=== PATIENT | male | born 1995 | race Caucasian/White ===

== ENCOUNTER → 2017-08-14 | Outpatient (CLI) | payer OTHER ==
[~2017-08-14] MED LIST: FISH OIL OMEGA1 EAC1 PO; HYDR-757 PO; OSLT75C PO; SERT100T PO; SULF1TAB38 PO
--- NOTE | 2017-08-14 10:48 | Diagnostic Imaging Report ---
Indication: Left renal mass noted on outside imaging. Comparison: No prior studies are available for comparison. Findings: Left kidney measures 11.4 x 6.1 x 5.3 cm. Cortical thickness and echogenicity is normal. No calculi are seen. No hydronephrosis. No renal masses identified. Impression: Unremarkable left renal ultrasound. Note is made of patient's reportedly abnormal outside study and its report is not available for direct comparison. Dictated by: Dictated on workstation # [id number]
== END ==
LOC: RAD 10:09
PROVIDERS: ATTEND Internal Medicine
DX: N28.89 Other specified disorders of kidney and ureter (principal)
CPT/HCPCS: 76775

== ENCOUNTER 2023-04-07 08:03 | Emergency (ER) | payer OTHER ==
[~2023-04-07] VITALS: Ht 177 cm; Wt 108.0 kg
[~2023-04-07 08:03] MED LIST changes: +HYDR-4226 PO; -HYDR-757 PO
[2023-04-07 08:10] VITALS: BP 166/97
[2023-04-07] MEDS ORDERED: KETOROLAC INJ 30 MG/ML VIAL IVP STA (08:31)
[2023-04-07] MEDS ORDERED: NS IV 1000 ML 1,000 ML IV STA (08:31)
[2023-04-07 08:46] LABS: CLARITY,URINE SL CLOUDY; COLOR,URINE YELLOW
[2023-04-07 08:47] LABS: BACTERIA,URINE NEGATIVE /HPF; BILIRUBIN,URINE NEGATIVE (NEGATIVE); GLUCOSE, URINE (UA) NEGATIVE (NEGATIVE); KETONES,URINE NEGATIVE (NEGATIVE); LEUKOCYTE ESTERASE ,URINE NEGATIVE (NEGATIVE); NITRITE,URINE NEGATIVE (NEGATIVE); PROTEIN,URINE NEGATIVE (NEGATIVE)
[2023-04-07 08:51] LABS: BASOPHILS % (AUTO) 0 % (0-10); EOSINOPHILS % (AUTO) 0 % (0-10); HEMATOCRIT 48 % (40-54); HEMOGLOBIN 16.5 g/dL (13.3-17.7); LYMPHOCYTES # (AUTO) 1.5 10^3/uL (1.0-4.0); LYMPHOCYTES % (AUTO) 20 % (12-44); MEAN CORPUSCULAR HEMOGLOBIN 32 pg (25-34); MEAN CORPUSCULAR HGB CONC 34 g/dL (32-36); MEAN CORPUSCULAR VOLUME 94 fL (80-99); MEAN PLATELET VOLUME 10.8 fL (9.0-12.2); MONOCYTES # (AUTO) 0.7 10^3/uL (0.0-1.0); MONOCYTES % (AUTO) 9 % (0-12); NEUTROPHILS # (AUTO) 5.2 10^3/uL (1.8-7.8); NEUTROPHILS % (AUTO) 70 % (42-75); PLATELET COUNT 261 10^3/uL (130-400); WHITE BLOOD COUNT 7.4 10^3/uL (4.3-11.0)
[2023-04-07 08:59] LABS: ALBUMIN 4.7 GM/DL (3.2-4.5); CHLORIDE 106 MMOL/L (98-107); SODIUM 140 MMOL/L (135-145)
[2023-04-07 09:00] LABS: CALCIUM 9.3 MG/DL (8.5-10.1)
[2023-04-07 09:02] LABS: GLUCOSE 103 MG/DL (70-105); TOTAL PROTEIN 7.6 GM/DL (6.4-8.2)
[2023-04-07 09:03] LABS: BILIRUBIN,TOTAL 0.6 MG/DL (0.1-1.0); CARBON DIOXIDE 27 MMOL/L (21-32)
[2023-04-07 09:05] LABS: ALKALINE PHOSPHATASE 59 U/L (40-136); CREATININE SERUM 1.21 MG/DL (0.60-1.30); GFR ESTIMATED 84
[2023-04-07 09:06] LABS: BUN/CREATININE RATIO 15
[2023-04-07 09:08] LABS: ALANINE AMINOTRANSFERASE 50 U/L (0-55)
--- NOTE | 2023-04-07 09:11 | ED General ---
General Chief Complaint: - Reproductive Stated Complaint: ABD PAIN | SCROTUM PAIN Nursing Triage Note: ARRIVED VIA AMB TO ROOM 09 WITH COMPLAINTS OF LEFT SIDED ABD PAIN THAT RADIATES INTO GROIN AND BUTTOCKS. DESCRIBES BURNING. OFF AND ON FOR 2 WEEKS THAT IS WORSE TODAY. Source of Information: Patient Exam Limitations: No Limitations History of Present Illness Date Seen by Provider: Apr 07, 2023 Time Seen by Provider: 08:27 Initial Comments Here with complaint of 2 weeks of left-sided abdominal/flank pain that radiates to the groin and buttocks. Describes burning with urination and overall it is worse today. Denies blood in his urine or stool. Denies diarrhea. He has never had pain like this before. He has not taken anything for the pain. He denies fever or chills or anything above the diaphragm with respect to concerns including chest pain, breathing problems, sore throat, runny nose or cough. Denies recent injury. Timing/Duration: Getting Worse, Intermittent, Other (2 weeks) Severity: Moderate Modifying Factors: worse with Movement Associated Systoms: No Chest Pain, No Cough, No Fever/Chills, No Nausea/Vomiting, No Shortness of Air, No Weakness Allergies and Home Medications Allergies Coded Allergies: cefixime (Unverified Adverse Reaction, Mild, HIVES, 09/25/10) doxycycline (Verified Adverse Reaction, Unknown, CHANGES MOOD, 04/07/23) Patient Home Medication List Home Medication List Reviewed: Yes Hydrocodone/Acetaminophen (Hydrocodone/Acetaminophen 5 MG/325 MG TAB) 1 Each Tablet, 1 EACH PO Q4H PRN for PAIN Prescribed by: ASTRID SANDOVAL on 12/15/151944 Sertraline HCl (Zoloft) 100 Mg Tablet, 100 MG PO HS, (Reported) Entered as Reported by: FLORENTINO BRIONES on 10/13/15 1517 Review of Systems Review of Systems Constitutional: see HPI; No chills, No fever EENTM: no symptoms reported Respiratory: no symptoms reported Cardiovascular: no symptoms reported Gastrointestinal: see HPI; No diarrhea, No nausea, No vomiting Genitourinary: see HPI; No discharge; dysuria, pain Musculoskeletal: back pain Skin: no symptoms reported Psychiatric/Neurological: No Symptoms Reported Past [id number] Hx Patient Social History Tobacco Use?: No Substance use?: No Alcohol Use?: No Immunizations Up To Date Tetanus Booster (TDap): Less than 5yrs Seasonal Allergies Seasonal Allergies: No Past Medical History Surgeries: Yes Respiratory: No Cardiac: No Neurological: No Reproductive Disorders: No Sexually Transmitted Disease: No HIV/AIDS: No Genitourinary: No Gastrointestinal: No Musculoskeletal: No Endocrine: No Adverse Reaction/Blood Tranf: No Family Medical History Reviewed Nursing Family Hx Physical Exam Vital Signs Vital Signs - First Documented 04/07/23 08:10 Temp 36.6 Pulse 90 Resp 16 B/P (MAP) 166/97 (120) Pulse Ox 96 O2 Delivery Room Air Capillary Refill : Less Than 3 Seconds Height, Weight, BMI Height: 5'10" Weight: 213lbs. oz. 96.739915bi; 34.00 BMI Method:Stated General Appearance: No Apparent Distress, WD/WN HEENT: PERRL/EOMI, Pharynx Normal Neck: Non Tender, Supple Respiratory: Lungs Clear, Normal Breath Sounds Cardiovascular: Regular Rate, Rhythm, No Murmur Gastrointestinal: Soft; No Guarding, No Rebound; Tenderness (Left lower quadrant, left flank) Back: CVA Tenderness (L); No CVA Tenderness (R), No Muscle Spasm, No Vertebral Tenderness Extremity: Normal Range of Motion, Non Tender Neurologic/Psychiatric: Alert, Oriented x3 Skin: Normal Color, Warm/Dry Progress/Results/Core Measures Suspected Sepsis SIRS Temperature: Pulse: 90 Respiratory Rate: 16 Laboratory Tests 04/07/23 08:45: White Blood Count 7.4 Blood Pressure 166 /97 Mean: 120 Laboratory Tests 04/07/23 08:45: Creatinine 1.21, Platelet Count 261, Total Bilirubin 0.6 Results/Orders Lab Results Laboratory Tests Test 04/07/23 08:12 04/07/23 08:45 Range/Units Urine Color YELLOW Urine Clarity SL CLOUDY Urine pH 6.0 5-9 Urine Specific [place] 1.025 H 1.016-1.022 Urine Protein NEGATIVE NEGATIVE Urine Glucose (UA) NEGATIVE NEGATIVE Urine Ketones NEGATIVE NEGATIVE Urine Nitrite NEGATIVE NEGATIVE Urine Bilirubin NEGATIVE NEGATIVE Urine Urobilinogen 0.2 < = 1.0 MG/DL Urine Leukocyte Esterase NEGATIVE NEGATIVE Urine RBC (Auto) NEGATIVE NEGATIVE Urine RBC NONE /HPF Urine WBC NONE /HPF Urine Crystals NONE /LPF Urine Bacteria NEGATIVE /HPF Urine Casts NONE /LPF Urine Mucus SMALL H /LPF Urine Culture Indicated NO White Blood Count 7.4 4.3-11.0 10^3/uL Red Blood Count 5.11 4.30-5.52 10^6/uL Hemoglobin 16.5 13.3-17.7 g/dL Hematocrit 48 40-54 % Mean Corpuscular Volume 94 80-99 fL Mean Corpuscular Hemoglobin 32 25-34 pg Mean Corpuscular Hemoglobin Concent 34 32-36 g/dL Red Cell Distribution Width 12.1 10.0-14.5 % Platelet Count 261 130-400 10^3/uL Mean Platelet Volume 10.8 9.0-12.2 fL Immature Granulocyte % (Auto) 0 % Neutrophils (%) (Auto) 70 42-75 % Lymphocytes (%) (Auto) 20 12-44 % Monocytes (%) (Auto) 9 0-12 % Eosinophils (%) (Auto) 0 0-10 % Basophils (%) (Auto) 0 0-10 % Neutrophils # (Auto) 5.2 1.8-7.8 10^3/uL Lymphocytes # (Auto) 1.5 1.0-4.0 10^3/uL Monocytes # (Auto) 0.7 0.0-1.0 10^3/uL Eosinophils # (Auto) 0.0 0.0-0.3 10^3/uL Basophils # (Auto) 0.0 0.0-0.1 10^3/uL Immature Granulocyte # (Auto) 0.0 0.0-0.1 10^3/uL Sodium Level 140 135-145 MMOL/L Potassium Level 4.0 3.6-5.0 MMOL/L Chloride Level 106 98-107 MMOL/L Carbon Dioxide Level 27 21-32 MMOL/L Anion Gap 7 5-14 MMOL/L Blood Urea Nitrogen 18 7-18 MG/DL Creatinine 1.21 0.60-1.30 MG/DL Estimat Glomerular Filtration Rate 84 BUN/Creatinine Ratio 15 Glucose Level 103 70-105 MG/DL Calcium Level 9.3 8.5-10.1 MG/DL Corrected Calcium 8.5-10.1 MG/DL Total Bilirubin 0.6 0.1-1.0 MG/DL Aspartate Amino Transf (AST/SGOT) 23 5-34 U/L Alanine Aminotransferase (ALT/SGPT) 50 0-55 U/L Alkaline Phosphatase 59 40-136 U/L C-Reactive Protein High Sensitivity 0.08 0.00-0.50 MG/DL Total Protein 7.6 6.4-8.2 GM/DL Albumin 4.7 H 3.2-4.5 GM/DL My Orders Orders - KARINA PULIDO MD Ua Culture If Indicated (04/07/23 08:20) Ns Iv 1000 Ml (Ns Iv 1000 Ml) (04/07/23 08:31) Ed Iv/Invasive Line Start (04/07/23 08:31) Ketorolac Injection (Ketorolac Injection (04/07/23 08:31) Ct Abd/Pelvis Wo(Kidney Stone) (04/07/23 08:31) Cbc And Automated Diff (04/07/23 08:31) Comprehensive Metabolic Panel (04/07/23 08:31) Hs C Reactive Protein (04/07/23 08:31) Ceftriaxone Iv/Im (Ceftriaxone Iv/Im) (04/07/23 10:18) Azithromycin Tablet (Azithromycin Tabl (04/07/23 10:18) Neis Edy Dna Urine Test (04/07/23 10:26) Chlamydia Trachomatis Urine (04/07/23 10:26) Vital Signs/I&O 04/07/23 08:10 Temp 36.6 Pulse 90 Resp 16 B/P (MAP) 166/97 (120) Pulse Ox 96 O2 Delivery Room Air Capillary Refill : Less Than 3 Seconds Blood Pressure Mean: 120 Progress Note : Progress Note Seen and evaluated. IV, labs including CBC, CMP and CRP as well as UA ordered. We will get CT abdomen pelvis without contrast to rule out kidney stone and diverticulitis. Normal saline 1 L bolus and Toradol 30 mg IV ordered. Monitor patient. Differential diagnosis includes UTI, renal stone, diverticulitis, other intra-abdominal pathology, muscle strain 0910: CBC is grossly normal. UA does not show any significant findings for infection or blood. Chemistries and CT pending. Monitor patient. 1020: CT complete and no obvious acute intra-abdominal lesions including diverticulitis, renal stone or abscess noted on my interpretation. Radiology report reviewed and agrees. Patient admits to sexual contact a few weeks ago and is concerned about STD. He reports condom use at the time but it was a one-time sexual contact and he is unsure about history. We will go ahead and treat for possible STD with 1 g of azithromycin p.o. and 1 g Rocephin IV. UA does not show any significant findings but we will send for GC and chlamydia testing. I did do exam of the genitalia I do not see any obvious lesions or discharge. There is no topical lesions to suggest yeast infection. He does have some mild irritation near the rectum. Patient does have strong family history of ulcerative colitis and colon cancer and we did discuss the need for colonoscopy and I will give him the phone number for Dr. Hernandez to follow-up with. He and his mother both agreed. Discharged home with return precautions. Patient verbalized understanding instructions and agreement with plan. Departure Impression Primary Impression: Left flank pain Additional Impression: Dysuria Disposition: HOME, SELF-CARE Condition: Stable Departure-Patient Inst. Decision time for Depature: 10:35 Referrals: ROCHELLE HERNANDEZ WILLIAM J DO (PCP/Family) Primary Care Physician Patient Instructions: Dysuria, Adult (DC), Flank Pain (DC), Sexually- Transmitted Diseases (DC) Add. Discharge Instructions: All discharge instructions reviewed with patient and/or family. Voiced understanding. You should follow-up with Dr. Hernandez or surgeon of your choice for further evaluation including possible colonoscopy especially given your family history.. Call his office for appointment. Return for worse pain, fever, vomiting, weakness, breathing problems, blood in your urine or stool or other concerns as needed. You may take ibuprofen 600 mg every 8 hours as needed for pain. You may also take Tylenol/acetaminophen 1000 mg every 8 hours as needed for pain. Drink plenty of fluids. You were treated for possible STD. Cultures were taken and we should have those results in the next 3 to 4 days. You will be called if those were positive. You should refrain from sexual counters for at least 7 days pending the cultures. KARINA PULIDO MD Apr 07, 2023 09:11
--- NOTE | 2023-04-07 09:22 | Diagnostic Imaging Report ---
INDICATION: Left-sided abdominal pain which radiates to the left groin. TECHNIQUE: Multiple contiguous axial images were obtained through the abdomen and pelvis without the use of intravenous contrast. Auto Exposure Controls were utilized during the CT exam to meet ALARA standards for radiation dose reduction. Comparison made with 12/15/2015. Visualized portions of the lung bases are clear. There were no pleural fluid collections. There was no free intraperitoneal air. The liver and gallbladder appear normal. The spleen, adrenals, and pancreas are normal. The kidneys bilaterally show no radiopaque stone or hydronephrosis. There is no retroperitoneal mass or adenopathy. There is no ascites or abnormal fluid collection. Visualized bowel loops show no sign of bowel obstruction or focal bowel wall thickening. The appendix appears normal. There is no pelvic free fluid. IMPRESSION: Negative CT of the abdomen and pelvis. Dictated by: Dictated on workstation # [id number]
[2023-04-07] MEDS ORDERED: AZITHROMYCIN 250 MG TABLET PO STA (10:18)
[2023-04-07] MEDS ORDERED: cefTRIAXone IV/IM 1,000 MG in NS (IVPB) 50 ML 50 ML IV STA (10:18)
== END 2023-04-07 11:16 | disposition home or self-care (01) ==
LOC: EDUNIT# 08:03 → ER 08:06
DX: R10.32 Left lower quadrant pain (principal); R30.0 Dysuria
CPT/HCPCS: 36415; 74176; 80053; 81000; 85025; 86141; 87491; 87591